=== PATIENT | female | born 1975 | race Caucasian/White ===

== ENCOUNTER 2019-01-14 08:27 | Emergency (ER) | payer SELFPAY ==
[~2019-01-14] VITALS: Ht 160 cm; Wt 56.2 kg
[2019-01-14] MEDS ORDERED: RT-ALBUTEROL/IPRATROPIUM 3 ML (DUONEB) VIAL INH ONE (09:30)
[2019-01-14] MEDS ORDERED: predniSONE 20 MG TAB PO ONE (09:30)
[2019-01-14] MEDS ORDERED: RT-ALBUINH IH (10:04)
[2019-01-14] MEDS ORDERED: FLUT9.9S NS (10:04)
[2019-01-14] MEDS ORDERED: FLUT1DIS26 IH (10:04)
--- NOTE | 2019-01-14 10:04 | ED Respiratory ---
General Chief Complaint: Cough/Cold/Flu Symptoms Stated Complaint: COUGH; SOB Nursing Triage Note: Has been sick for over a week with cough and congestion. Was seen in urgent care a week ago and given a 5 day steroid dose pack that she finished two days ago. Feels like she is worse instead of better. Is having trouble sleeping bc of the cough. Is coughing up clear sputum, states the sputum was green prior to taking the steroid pack. Does have chest pain with coughing and feels short of breath. Has hx of COPD and asthma but has not taken any meds for it for years. History of Present Illness Date Seen by Provider: January 14, 2019 Time Seen by Provider: 09:21 Initial Comments This is a 43 y/o f who presents to the ED for evaluation. Pt with history of Asthma. Reports frequent exacerbations over the past 3-4 months. States that she has been dx multiple times with "bronchitis" and treated with 5 day course of prednisone. Completed a 5 day prednisone course 2 days ago. [place] significantly improved/resolved on the steroids but return of wheezing/dyspnea over the past 2 days. Has nebulized albuterol at home but no inhaler 2/2 cost. Was previously on advair and intranasal flonase but has not been able to take 2/ 2 cost. No fever, no myaglais. intermittent cough that is non-productive. no chest pain. Allergies and Home Medications Allergies Coded Allergies: meperidine (Verified Allergy, Unknown, hives, 01/14/19) Home Medications Albuterol Sulfate 1 Puff Puff, 2 PUFF IH Q4H PRN for SHORTNESS OF BREATH 1 PUFF = 90 MCG Prescribed by: FLORA AYALA on 01/14/19 1004 Fluticasone Propionate 9.[address] [place].susp, 1 SPRAY NS DAILY 1 SPRAY EACH NARE DAILY Prescribed by: FLORA AYALA on 01/14/19 1004 Fluticasone/Salmeterol 1 Each Blst.w.dev, 1 EACH IH DAILY Prescribed by: FLORA AYALA on 01/14/19 1004 Patient Home Medication List Home Medication List Reviewed: Yes Review of Systems Review of Systems Constitutional: No chills, No fever, No weakness Respiratory: cough; No orthopnea; short of breath, wheezing Cardiovascular: No chest pain, No edema, No palpitations Gastrointestinal: No abdominal pain, No diarrhea, No nausea, No vomiting Musculoskeletal: No back pain, No joint pain, No muscle pain Skin: No rash Psychiatric/Neurological: Denies Numbness, Denies Tingling All Other Systems Reviewed Negative Unless Noted: Yes (Negative excepted noted.) Past Zdubcxe-Gaagkm-Qkiwno Hx Patient Social History Alcohol Use: Denies Use Recreational Drug Use: No Smoking Status: Current Everyday Smoker Type Used: Cigarettes 2nd Hand Smoke Exposure: Yes Recent Foreign Travel: No Contact w/Someone Who Travel: No Recent Infectious Disease Expo: No Recent Hopitalizations: No Physical Abuse: No Sexual Abuse: No Mistreated: No Fear: No Seasonal Allergies Seasonal Allergies: No Past Medical History Surgeries: Yes (chest tubes for bilat collapsed lungs) Hysterectomy, Orthopedic Respiratory: Yes Asthma, COPD Cardiac: No Neurological: No Genitourinary: No Gastrointestinal: No Musculoskeletal: No Endocrine: No HEENT: No Cancer: No Psychosocial: No Blood Disorders: No Adverse Reaction/Blood Tranf: No Physical Exam Vital Signs - First Documented 01/14/19 08:37 Temp 97.4 Pulse 97 Resp 22 B/P (MAP) 122/77 (92) Pulse Ox 96 Capillary Refill : Less Than 3 Seconds Height: 5'3.00" Weight: 124lbs. oz. 56.023552ej; BMI Method:Stated General Appearance: WD/WN, no apparent distress, other (non-toxic appearing) HEENT: PERRL/EOMI Respiratory: no respiratory distress, no accessory muscle use, wheezing Cardiovascular: regular rate, rhythm, no edema, no JVD Extremities: normal range of motion, no pedal edema, normal capillary refill Neurologic/Psychiatric: alert, normal mood/affect, oriented x 3 Skin: normal color, warm/dry Progress/Results/Core Measures Suspected Sepsis Recent Fever Within 48 Hours: No Infection Criteria Present: Suspected New Infection New/Unexplained Altered Menta: No Sepsis Screen: Possible Sepsis Risk SIRS Temperature:97.4 Pulse: 97 Respiratory Rate: 22 Blood Pressure 122 /77 Mean: 92 Results/Orders My Orders Orders - FLORA AYALA T DO Albuterol/Ipra Inhalation Soln (Duoneb I (01/14/19 09:30) Svn Small Volume Nebulizer (01/14/19 09:28) Prednisone Tablet (Deltasone Tablet) (01/14/19 09:30) Medications Given in ED Current Medications Medications Dose Ordered Sig/Barbara Route Start Time Stop Time Status Last Admin Dose Admin Albuterol/ Ipratropium 3 ml ONCE ONCE INH 01/14/19 09:30 01/14/19 09:31 DC 01/14/19 09:42 3 ML Prednisone 50 mg ONCE ONCE PO 01/14/19 09:30 01/14/19 09:31 DC 01/14/19 09:44 50 MG Vital Signs/I&O 01/14/19 08:37 Temp 97.4 Pulse 97 Resp 22 B/P (MAP) 122/77 (92) Pulse Ox 96 Capillary Refill : Less Than 3 Seconds Blood Pressure Mean: 92 Progress Note : Time: 10:00 Progress Note Lungs significantly improved after duoneb. Very slight end-expiratory wheezing. Feels improved. Breath sounds equal. At this time do not feel pt requires a CXR as breath sounds are equal. Discussed at length need to optimize outpt medications. Advised addition of Benadryl as pt has allergy symptoms and suspect frequent exacerbations are precipitated by uncontrolled allergies. Provided with Rx for advair/flonase/albuterol inhaler and longer taper of steroids. Advised of local pharmacy that is income based. provided with further prednisone course. ER return precautions given. Pt verbalized understanding. All questions answered. Departure Impression Primary Impression: Asthma exacerbation Disposition: HOME, SELF-CARE Condition: Improved Departure-Patient Inst. Decision time for Depature: 10:01 Referrals: SELFRAMONA MD (PCP/Family) Primary Care Physician Patient Instructions: Asthma in Adults, Avoiding Asthma Triggers Add. Discharge Instructions: Please read the attached handouts. Continue your home allergy medication. Take Benadryl 50mg once a day for further allergy control. Take the steroid course as prescribed. Please get the inhalers filled. All discharge instructions reviewed with patient and/or family. Voiced understanding. Scripts Prednisone (Prednisone) 20 Mg Tab 10 MG PO DAILY, #40 TAB 0 Refills Take 5 tablets x 2 days 4 tablets x 3 days 3 tablets x 3 days 2 tablets x 3 days 1 tablet x 3 days Prov: FLORA AYALA DO 01/14/19 Albuterol Sulfate (PROAIR HFA) 1 Puff Puff 2 PUFF IH Q4H PRN for SHORTNESS OF BREATH for 30 Days, #1 PUFF 3 Refills 1 PUFF = 90 MCG Prov: FLORA AYALA DO 01/14/19 Fluticasone/Salmeterol (Advair 250-50 Diskus) 1 Each Blst.w.dev 1 EACH IH DAILY for 30 Days, DISK Prov: FLORA AYALA DO 01/14/19 Fluticasone Propionate (Flonase Allergy Relief) 9.[address] [place].susp 1 SPRAY NS DAILY, #1 EACH 2 Refills 1 SPRAY EACH NARE DAILY Prov: FLORA AYALA DO 01/14/19 FLORA AYALA DO January 14, 2019 10:04
[2019-01-14 10:16] VITALS: BP 105/74
[2019-01-14] MEDS ORDERED: PRD20T PO (10:38)
== END 2019-01-14 10:16 | disposition home or self-care (01) ==
LOC: EDUNIT# 08:27 → ER FS 08:29
DX: J45.901 Unspecified asthma with (acute) exacerbation (principal); J44.9 Chronic obstructive pulmonary disease, unspecified; F17.210 Nicotine dependence, cigarettes, uncomplicated; Z90.710 Acquired absence of both cervix and uterus; Z88.8 Allergy status to other drugs, medicaments and biological substances; Z91.14 Patient's other noncompliance with medication regimen; Z79.51 Long term (current) use of inhaled steroids
CPT/HCPCS: 99283

== ENCOUNTER 2019-03-31 22:25 | Emergency (ER) | payer SELFPAY ==
[~2019-03-31] VITALS: Ht 157.5 cm; Wt 54.4 kg
[~2019-03-31 22:25] MED LIST: FLUT1DIS26 IH; FLUT9.9S NS; PRD20T PO; RT-ALBUINH IH
[2019-04-01] MEDS ORDERED: KETOROLAC 60 MG/2 ML VIAL IM STA (00:10)
[2019-04-01] MEDS ORDERED: PROCHLORPERAZINE 10 MG/2ML INJ (COMPAZINE) IM STA (00:10)
[2019-04-01] MEDS ORDERED: diphenhydrAMINE 50 MG/ML INJ (BENADRYL) IM STA (00:10)
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
[2019-04-01] MEDS ORDERED: IBUP-1780 PO (00:20)
[2019-04-01 00:28] VITALS: BP 110/83
== END 2019-04-01 00:35 | disposition home or self-care (01) ==
LOC: EDUNIT# 22:25 → ER FS 22:26
DX: T70.0XXA Otitic barotrauma, initial encounter (principal); G43.009 Migraine without aura, not intractable, without status migrainosus; J44.9 Chronic obstructive pulmonary disease, unspecified; Z88.5 Allergy status to narcotic agent; Z79.51 Long term (current) use of inhaled steroids; Z77.22 Contact with and (suspected) exposure to environmental tobacco smoke (acute) (chronic); Z90.710 Acquired absence of both cervix and uterus
CPT/HCPCS: 96372; 99284

== ENCOUNTER 2019-05-08 19:40 | Emergency (ER) | payer SELFPAY, OTHER | END 2019-05-08 22:02 | disposition home or self-care (01) | LOC: ER FS 19:40 ==

== ENCOUNTER 2019-12-14 20:41 | Emergency (ER) | payer SELFPAY ==
[~2019-12-14] VITALS: Ht 157 cm; Wt 55.4 kg
[~2019-12-14 20:41] MED LIST changes: +ALBU2.5V4 INH; +IBUP-1780 PO; +NF-METHYLP PO
[2019-12-14] MEDS ORDERED: RT-ALBUTEROL HFA (PROAIR HFA) 8.5 GM IH SCH (21:00)
[2019-12-14 21:21] LABS: HEMATOCRIT 42 % (35-52); HEMOGLOBIN 13.9 G/DL (11.5-16.0); MEAN CORPUSCULAR HEMOGLOBIN 29 PG (25-34); MEAN CORPUSCULAR HGB CONC 33 G/DL (32-36); MEAN CORPUSCULAR VOLUME 88 FL (80-99); RED CELL DISTRIBUTION WIDTH 12.8 % (10.0-14.5); WHITE BLOOD COUNT 10.1 10^3/uL (4.3-11.0)
[2019-12-14 21:22] LABS: BASOPHILS # (AUTO) 0.1 10^3/uL (0.0-0.1); BASOPHILS % (AUTO) 1 % (0-10); EOSINOPHILS # (AUTO) 0.3 10^3/uL (0.0-0.3); EOSINOPHILS % (AUTO) 3 % (0-10); LYMPHOCYTES # (AUTO) 3.2 X 10^3 (1.0-4.0); LYMPHOCYTES % (AUTO) 32 % (12-44); MEAN PLATELET VOLUME 11.7 FL (7.4-10.4); MONOCYTES # (AUTO) 0.9 X 10^3 (0.0-1.0); MONOCYTES % (AUTO) 9 % (0-12); NEUTROPHILS # (AUTO) 5.5 X 10^3 (1.8-7.8); NEUTROPHILS % (AUTO) 55 % (42-75); PLATELET COUNT 230 10^3/uL (130-400)
--- NOTE | 2019-12-14 21:27 | Diagnostic Imaging Report ---
EXAMINATION: Chest 1 view HISTORY: Two-week cough. COMPARISON: Chest radiograph on 05/08/2019. FINDINGS: The lung volumes are normal. No focal consolidation is seen. No large pleural effusion or pneumothorax is seen. The cardiomediastinal silhouette is normal in size and contour. No acute osseous abnormality is seen. IMPRESSION: 1. No acute pleuroparenchymal process. Dictated by: Dictated on workstation # [id number]
[2019-12-14] MEDS ORDERED: RT-ALBUTEROL/IPRATROPIUM 3 ML (DUONEB) VIAL ONE (21:35)
[2019-12-14 21:37] LABS: ALANINE AMINOTRANSFERASE 9 U/L (0-55); ALBUMIN 4.3 GM/DL (3.2-4.5); ALKALINE PHOSPHATASE 57 U/L (40-136); BILIRUBIN,TOTAL 0.2 MG/DL (0.1-1.0); BUN/CREATININE RATIO 19; CALCIUM 9.1 MG/DL (8.5-10.1); CARBON DIOXIDE 24 MMOL/L (21-32); CHLORIDE 102 MMOL/L (98-107); CREATININE SERUM 0.73 MG/DL (0.60-1.30); GFR ESTIMATED > 60; GLUCOSE 109 MG/DL (70-105); POTASSIUM 3.8 MMOL/L (3.6-5.0); SODIUM 138 MMOL/L (135-145); TOTAL PROTEIN 6.7 GM/DL (6.4-8.2)
[2019-12-14] MEDS ORDERED: methylPREDNISolone 125 MG (Solu-MEDROL) VIAL IM ONE (21:45)
[2019-12-14] MEDS ORDERED: RT-ALBUTEROL/IPRATROPIUM 3 ML (DUONEB) VIAL INH ONE (21:45)
[2019-12-14 22:03] VITALS: BP 105/81
--- NOTE | 2019-12-14 22:11 | ED Respiratory ---
General Chief Complaint: Cough/Cold/Flu Symptoms Stated Complaint: SOA,HEADACHE,BODY ACHES Nursing Triage Note: Pt complaining of a cough that has been going on for 2 weeks. Pt took a steroid the past 4 days but still feels short of breath History of Present Illness Date Seen by Provider: Dec 14, 2019 Time Seen by Provider: 21:05 Initial Comments . known asthma is smoking quite a bit has had problems with allergens in the past and feels like allergies or base of this and had some anterior chest pressure some headache and some cold feeling in her chest. No known history of covert exposure no travel and no risk factors of the respiratory problem is afebrile now and has not had a fever. She has a home nebulizer has an albuterol inhaler as taken both was on a very short course of steroids with little help. Placed her in isolation diffuse covert precautions. Timing/Duration: week Severity: mild Prior Episodes/Possible Cause: frequent episodes, allergen exposure Modifying Factors: Improves With Activity Associated Symptoms: chest pain/soreness, cough; No dizziness, No fever/chills; headache; No lightheadedness, No muscle aches, No nasal congestion; shortness of breath; No sore throat; wheezing Allergies and Home Medications Allergies Coded Allergies: meperidine (Verified Allergy, Unknown, hives, 01/14/19) Home Medications Albuterol Sulfate 1 Puff Puff, 2 PUFF IH Q4H PRN for SHORTNESS OF BREATH 1 PUFF = 90 MCG Prescribed by: FLORA AYALA on 01/14/19 1004 Albuterol Sulfate 2.5 Mg/3 Ml [place].neb, 2.5 MG INH Q6H Prescribed by: ELIO CASTILLO on 05/08/19 214 Fluticasone Propionate 9.9 Ml [place].susp, 1 SPRAY NS DAILY 1 SPRAY EACH NARE DAILY Prescribed by: FLORA AYALA on 01/14/19 1004 Fluticasone/Salmeterol 1 Each Blst.w.dev, 1 EACH IH DAILY Prescribed by: FLORA AYALA on 01/14/19 1004 Ibuprofen 800 Mg Tablet, 800 MG PO Q8H PRN for PAIN Prescribed by: LIZZIE RIVERA on 04/01/19 0020 Methylprednisolone 4 Mg Tab, 4 MG PO UD as directed per dose pack Prescribed by: ELIO CASTILLO on 05/08/192141 Prednisone 20 Mg Tab, 10 MG PO DAILY Take 5 tablets x 2 days 4 tablets x 3 days 3 tablets x 3 days 2 tablets x 3 days 1 tablet x 3 days Prescribed by: FLORA AYALA on 01/14/19 1038 Patient Home Medication List Home Medication List Reviewed: Yes Review of Systems Review of Systems Constitutional: No chills, No fever, No weakness EENTM: No hoarseness, No nose congestion, No throat pain, No throat swelling Respiratory: cough; No dyspnea on exertion; short of breath, wheezing Cardiovascular: chest pain; No edema, No palpitations Gastrointestinal: No constipation, No diarrhea, No nausea, No vomiting Genitourinary: No dysuria, No frequency Musculoskeletal: No back pain, No muscle pain, No muscle stiffness Skin: No dryness, No rash Psychiatric/Neurological: Headache; Denies Numbness, Denies Tingling Past Puawhhq-Uiywzd-Vuwxuz Hx Past Med/Social Hx: Reviewed Nursing Past Med/Soc Hx Patient Social History Alcohol Use: Denies Use Recreational Drug Use: No Smoking Status: Current Everyday Smoker Type Used: Cigarettes 2nd Hand Smoke Exposure: No Recent Foreign Travel: No Contact w/Someone Who Travel: No Recent Infectious Disease Expo: No Recent Hopitalizations: No Physical Abuse: No Sexual Abuse: No Mistreated: No Seasonal Allergies Seasonal Allergies: No Past Medical History Surgeries: Yes (chest tubes for bilat collapsed lungs) Hysterectomy, Orthopedic Respiratory: Yes Asthma, COPD Cardiac: No Neurological: No Genitourinary: No Gastrointestinal: No Musculoskeletal: No Endocrine: No HEENT: No Cancer: No Psychosocial: No Blood Disorders: No Adverse Reaction/Blood Tranf: No Physical Exam Vital Signs - First Documented 12/14/19 20:50 Temp 36.1 Pulse 83 Resp 18 B/P (MAP) 111/49 (69) Pulse Ox 97 O2 Delivery Room Air Capillary Refill : Less Than 3 Seconds Height: 5'3.00" Weight: 117lbs. oz. 53.435894aq; 22.00 BMI Method:Stated General Appearance: WD/WN, no apparent distress Eyes: Bilateral Eye Normal Inspection, Bilateral Eye PERRL, Bilateral Eye EOMI HEENT: PERRL/EOMI, TMs normal, pharynx normal Neck: non-tender, full range of motion, normal inspection Respiratory: lungs clear; No rales, No rhonchi; wheezing (mild) Cardiovascular: regular rate, rhythm, no murmur Extremities: normal range of motion Neurologic/Psychiatric: no motor/sensory deficits, oriented x 3 Skin: normal color, warm/dry Progress/Results/Core Measures Suspected Sepsis Recent Fever Within 48 Hours: No Infection Criteria Present: None New/Unexplained Altered Menta: No Sepsis Screen: No Definite Risk SIRS Temperature: Pulse: 70 Respiratory Rate: 18 Laboratory Tests 12/14/19 21:10: White Blood Count 10.1 Blood Pressure 105 /81 Mean: 69 Laboratory Tests 12/14/19 21:10: Creatinine 0.73, Platelet Count 230, Total Bilirubin 0.2 Results/Orders Lab Results Laboratory Tests Test 12/14/19 21:10 Range/Units White Blood Count 10.1 4.3-11.0 10^3/uL Red Blood Count 4.79 4.35-5.85 10^6/uL Hemoglobin 13.9 11.5-16.0 G/DL Hematocrit 42 35-52 % Mean Corpuscular Volume 88 80-99 FL Mean Corpuscular Hemoglobin 29 25-34 PG Mean Corpuscular Hemoglobin Concent 33 32-36 G/DL Red Cell Distribution Width 12.8 10.0-14.5 % Platelet Count 230 130-400 10^3/uL Mean Platelet Volume 11.7 H 7.4-10.4 FL Neutrophils (%) (Auto) 55 42-75 % Lymphocytes (%) (Auto) 32 12-44 % Monocytes (%) (Auto) 9 0-12 % Eosinophils (%) (Auto) 3 0-10 % Basophils (%) (Auto) 1 0-10 % Neutrophils # (Auto) 5.5 1.8-7.8 X 10^3 Lymphocytes # (Auto) 3.2 1.0-4.0 X 10^3 Monocytes # (Auto) 0.9 0.0-1.0 X 10^3 Eosinophils # (Auto) 0.3 0.0-0.3 10^3/uL Basophils # (Auto) 0.1 0.0-0.1 10^3/uL Sodium Level 138 135-145 MMOL/L Potassium Level 3.8 3.6-5.0 MMOL/L Chloride Level 102 98-107 MMOL/L Carbon Dioxide Level 24 21-32 MMOL/L Anion Gap 12 5-14 MMOL/L Blood Urea Nitrogen 14 7-18 MG/DL Creatinine 0.73 0.60-1.30 MG/DL Estimat Glomerular Filtration Rate > 60 BUN/Creatinine Ratio 19 Glucose Level 109 H 70-105 MG/DL Calcium Level 9.1 8.5-10.1 MG/DL Corrected Calcium 8.9 8.5-10.1 MG/DL Total Bilirubin 0.2 0.1-1.0 MG/DL Aspartate Amino Transf (AST/SGOT) 11 5-34 U/L Alanine Aminotransferase (ALT/SGPT) 9 0-55 U/L Alkaline Phosphatase 57 40-136 U/L Total Protein 6.7 6.4-8.2 GM/DL Albumin 4.3 3.2-4.5 GM/DL Micro Results Microbiology 12/14/19 Influenza Types A,B Antigen (MARY) - Final, Complete My Orders Orders - RONAK JORDAN JR, MD Cbc With Automated Diff (12/14/19 20:51) Comprehensive Metabolic Panel (12/14/19 20:51) Chest 1 View Ap/Pa Only (12/14/19 20:51) Albuterol Inhaler (Proair Hfa) (12/14/19 21:00) Influenza A And B Antigens (12/14/19 21:32) Methylprednisolone Sod Succ (Solu-Medrol (12/14/19 21:45) Albuterol/Ipra Inhalation Soln (Duoneb I (12/14/19 21:45) Svn Small Volume Nebulizer (12/14/19 21:40) Albuterol/Ipra Inhalation Soln (Duoneb I (12/14/19 21:35) Vital Signs/I&O 12/14/19 20:50 Temp 36.1 Pulse 83 Resp 18 B/P (MAP) 111/49 (69) Pulse Ox 97 O2 Delivery Room Air Capillary Refill : Less Than 3 Seconds Blood Pressure Mean: 69 Progress Note : Time: 22:10 Progress Note CBC normal chest x-ray normal flu swab negative at this time due to like there is majority chance this is her asthma did go ahead and give her an aerosolized treatment as MDIs not available later also gave her an injection of Solu-Medrol. In light of the fact that she had. Recently been on steroids as well and feel this is her asthma. Did discuss the possibility of Covan in the need to follow- up on the testing 2-stage herself until the testing is back to nebulize and room away from each other to feel that the whole area would be more contagious because of the nebulization and warned her about that possibility. Will follow up with her primary care physician for results and further evaluation. Departure Impression Primary Impression: Asthma exacerbation Qualified Codes: J45.21 - Mild intermittent asthma with (acute) exacerbation Disposition: HOME, SELF-CARE Condition: Stable Departure-Patient Inst. Referrals: RAMONA BALLARD MD (PCP/Family) Primary Care Physician Patient Instructions: Asthma, Adult (DC) Add. Discharge Instructions: Follow-up with primary care physician for results of testing. Further follow-up. All discharge instructions reviewed with patient and/or family. Voiced understanding. Work/School Note: Work Release Form Date Seen in the Emergency Department: Dec 14, 2019 Restrictions: Need Release from Doctor RONAK JORDAN JR, MD Dec 14, 2019 22:11
== END 2019-12-14 22:27 | disposition home or self-care (01) ==
LOC: EDUNIT# 20:41 → ER FS 20:43
DX: J45.21 Mild intermittent asthma with (acute) exacerbation (principal); F17.210 Nicotine dependence, cigarettes, uncomplicated
CPT/HCPCS: 36415; 71045; 80053; 85025; 87430; 87635; 87804

== ENCOUNTER 2021-05-13 19:59 | Emergency (ER) | payer SELFPAY ==
--- NOTE | 2021-05-13 20:06 | ED Dyspnea ---
General Stated Complaint: SOB/COVID+ History of Present Illness Date Seen by Provider: May 13, 2021 Time Seen by Provider: 20:06 Initial Comments 45-year-old female presents with shortness of breath. Patient reports she has a history of asthma tested positive for Covid. Patient is fully vaccinated. Patient reports she started noticing a few symptoms yesterday and got worse today. 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 Patient reports this evening her shortness of breath got worse. She used her inhaler in route and her symptoms improved significantly. Patient denies any sore throat nausea vomiting fever. She does have some mild chest tightness and a cough. Allergies and Home Medications Allergies Coded Allergies: meperidine (Verified Allergy, Unknown, hives, 01/14/19) Home Medications Albuterol Sulfate 1 Puff Puff, 2 PUFF IH Q4H PRN for SHORTNESS OF BREATH 1 PUFF = 90 MCG Prescribed by: FLORA AYALA on 01/14/19 1004 Albuterol Sulfate 2.5 Mg/3 Ml Vial.neb, 2.5 MG INH Q6H Prescribed by: ELIO CASTILLO on 05/08/192141 Fluticasone Propionate 9.9 Ml [place].susp, 1 SPRAY NS DAILY 1 SPRAY EACH NARE DAILY Prescribed by: FLORA AYALA on 01/14/19 1004 Fluticasone/Salmeterol 1 Each Blst.w.dev, 1 EACH IH DAILY Prescribed by: FLORA AYALA on 01/14/19 1004 Ibuprofen 800 Mg Tablet, 800 MG PO Q8H PRN for PAIN Prescribed by: LIZZIE RIVERA on 04/01/19 0020 Methylprednisolone 4 Mg Tab, 4 MG PO UD as directed per dose pack Prescribed by: ELIO CASTILLO on 05/08/192141 Prednisone 20 Mg Tab, 10 MG PO DAILY Take 5 tablets x 2 days 4 tablets x 3 days 3 tablets x 3 days 2 tablets x 3 days 1 tablet x 3 days Prescribed by: FLORA AYALA on 01/14/19 1038 Patient Home Medication List Home Medication List Reviewed: Yes Review of Systems Review of Systems Constitutional: No chills, No fever EENTM: no symptoms reported Respiratory: cough, short of breath Cardiovascular: see HPI Gastrointestinal: no symptoms reported Musculoskeletal: no symptoms reported Skin: no symptoms reported Psychiatric/Neurological: No Symptoms Reported Endocrine: No Symptoms Reported Hematologic/Lymphatic: No Symptoms Reported Past Zrkmbwe-Kgldra-Ohcgjk Hx Seasonal Allergies Seasonal Allergies: No Past Medical History Surgeries: Yes (chest tubes for bilat collapsed lungs) Hysterectomy, Orthopedic Respiratory: Yes Asthma, COPD Cardiac: No Neurological: No Genitourinary: No Gastrointestinal: No Musculoskeletal: No Endocrine: No HEENT: No Cancer: No Psychosocial: No Blood Disorders: No Adverse Reaction/Blood Tranf: No Physical Exam Vital Signs Vital Signs - First Documented 05/13/21 20:04 Temp 37.0 Pulse 93 Resp 18 B/P (MAP) 118/75 (89) Pulse Ox 100 O2 Delivery Room Air Capillary Refill : Height, Weight, BMI Height: 5'3.00" Weight: 117lbs. oz. 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 Norm as Tested Skin: Normal Color, Warm/Dry Progress/Results/Core Measures Results/Orders Lab Results Laboratory Tests Test 05/13/21 20:08 Range/Units White Blood Count 5.6 4.3-11.0 10^3/uL Red Blood Count 4.44 3.80-5.11 10^6/uL Hemoglobin 12.9 11.5-16.0 g/dL Hematocrit 39 35-52 % Mean Corpuscular Volume 87 80-99 fL Mean Corpuscular Hemoglobin 29 25-34 pg Mean Corpuscular Hemoglobin Concent 33 32-36 g/dL Red Cell Distribution Width 12.8 10.0-14.5 % Platelet Count 181 130-400 10^3/uL Mean Platelet Volume 10.8 9.0-12.2 fL Immature Granulocyte % (Auto) 1 % Neutrophils (%) (Auto) 63 42-75 % Lymphocytes (%) (Auto) 20 12-44 % Monocytes (%) (Auto) 14 H 0-12 % Eosinophils (%) (Auto) 2 0-10 % Basophils (%) (Auto) 1 0-10 % Neutrophils # (Auto) 3.5 1.8-7.8 X 10^3 Lymphocytes # (Auto) 1.1 1.0-4.0 X 10^3 Monocytes # (Auto) 0.8 0.0-1.0 X 10^3 Eosinophils # (Auto) 0.1 0.0-0.3 10^3/uL Basophils # (Auto) 0.0 0.0-0.1 10^3/uL Immature Granulocyte # (Auto) 0.0 0.0-0.1 10^3/uL Sodium Level 139 135-145 MMOL/L Potassium Level 3.4 L 3.6-5.0 MMOL/L Chloride Level 106 98-107 MMOL/L Carbon Dioxide Level 23 21-32 MMOL/L Anion Gap 10 5-14 MMOL/L Blood Urea Nitrogen 10 7-18 MG/DL Creatinine 0.71 0.60-1.30 MG/DL Estimat Glomerular Filtration Rate 88 BUN/Creatinine Ratio 14 Glucose Level 100 70-105 MG/DL Calcium Level 8.2 L 8.5-10.1 MG/DL Corrected Calcium 8.3 L 8.5-10.1 MG/DL Total Bilirubin 0.2 0.1-1.0 MG/DL Aspartate Amino Transf (AST/SGOT) 13 5-34 U/L Alanine Aminotransferase (ALT/SGPT) 8 0-55 U/L Alkaline Phosphatase 55 40-136 U/L Troponin I < 0.30 <0.30 NG/ML Total Protein 6.1 L 6.4-8.2 GM/DL Albumin 3.9 3.2-4.5 GM/DL My Orders Orders - TOAN KINCAID DO Cbc With Automated Diff (05/13/21 20:07) Comprehensive Metabolic Panel (05/13/21 20:07) Troponin I Fs (05/13/21 20:07) Dexamethasone Injection (Decadron Inje (05/13/21 20:15) Chest 1 View Ap/Pa Only (05/13/21 20:07) Ed Iv/Invasive Line Start (05/13/21 20:22) Medications Given in ED Current Medications Medications Dose Ordered Sig/Barbara Route Start Time Stop Time Status Last Admin Dose Admin Dexamethasone Sodium Phosphate 10 mg ONCE ONCE IV 05/13/21 20:15 05/13/21 20:16 DC 8/28/21 20:28 10 MG Vital Signs/I&O 05/13/21 20:04 Temp 37.0 Pulse 93 Resp 18 B/P (MAP) 118/75 (89) Pulse Ox 100 O2 Delivery Room Air Progress Progress Note : Progress Note Patient with negative chest x-ray. Patient's oxygen is saturation is 100%. I did discuss with her about potential Regeneron infusion and I will place an out patient order. Patient stable and discharged Diagnostic Imaging Diagonstic Imaging: Xray Plain Films/CT/US/NM/MRI: chest Comments Date of Exam:05/13/21 CHEST 1 VIEW AP/PA ONLY INDICATION: SOB, Covid positive. TECHNIQUE: Single view chest 8:12 PM. CORRELATION STUDY: 12/14/2019. FINDINGS: Patient is significantly rotated on this study. Given this, mediastinal structures appear generally stable and unremarkable. Asymmetric bullous changes at the right lung apex. No acute consolidating infiltrate. IMPRESSION: Negative for acute abnormality of the chest. Departure Impression Primary Impression: Asthma exacerbation Qualified Codes: J45.21 - Mild intermittent asthma with (acute) exacerbation Additional Impression: COVID-19 Disposition: 01 HOME, SELF-CARE Condition: Stable Departure-Patient Inst. Referrals: SELF,RAMONA BRAR (PCP/Family) Primary Care Physician Patient Instructions: REGEN-COV (casirivimab and imdevimab) FDA Fact Sheet, COVID-19 ED, Asthma in Adults Add. Discharge Instructions: Use your inhaler every 4 hours while awake for the next 24 hours then as needed Scripts Dexamethasone (Dexamethasone) 6 Mg Tablet 6 MG PO ONCE, #1 TAB take on am 05/15/21 Prov: TOAN KINCAID DO 05/13/21 TOAN KINCAID DO May 13, 2021 20:06
[2021-05-13 20:16] LABS: BASOPHILS % (AUTO) 1 % (0-10); EOSINOPHILS # (AUTO) 0.1 10^3/uL (0.0-0.3); EOSINOPHILS % (AUTO) 2 % (0-10); HEMATOCRIT 39 % (35-52); HEMOGLOBIN 12.9 g/dL (11.5-16.0); LYMPHOCYTES # (AUTO) 1.1 X 10^3 (1.0-4.0); LYMPHOCYTES % (AUTO) 20 % (12-44); MEAN CORPUSCULAR HEMOGLOBIN 29 pg (25-34); MEAN CORPUSCULAR HGB CONC 33 g/dL (32-36); MEAN CORPUSCULAR VOLUME 87 fL (80-99); MEAN PLATELET VOLUME 10.8 fL (9.0-12.2); MONOCYTES # (AUTO) 0.8 X 10^3 (0.0-1.0); MONOCYTES % (AUTO) 14 % (0-12); NEUTROPHILS # (AUTO) 3.5 X 10^3 (1.8-7.8); NEUTROPHILS % (AUTO) 63 % (42-75); PLATELET COUNT 181 10^3/uL (130-400); WHITE BLOOD COUNT 5.6 10^3/uL (4.3-11.0)
[2021-05-13 20:35] LABS: ALANINE AMINOTRANSFERASE 8 U/L (0-55); ALKALINE PHOSPHATASE 55 U/L (40-136); BILIRUBIN,TOTAL 0.2 MG/DL (0.1-1.0); BUN/CREATININE RATIO 14; CALCIUM 8.2 MG/DL (8.5-10.1); CARBON DIOXIDE 23 MMOL/L (21-32); CHLORIDE 106 MMOL/L (98-107); CREATININE SERUM 0.71 MG/DL (0.60-1.30); GFR ESTIMATED 88; GLUCOSE 100 MG/DL (70-105); POTASSIUM 3.4 MMOL/L (3.6-5.0); SODIUM 139 MMOL/L (135-145)
[2021-05-13 20:36] LABS: ALBUMIN 3.9 GM/DL (3.2-4.5); TOTAL PROTEIN 6.1 GM/DL (6.4-8.2)
--- NOTE | 2021-05-13 20:42 | Diagnostic Imaging Report ---
INDICATION: SOB, Covid positive. TECHNIQUE: Single view chest 8:12 PM. CORRELATION STUDY: 12/14/2019. FINDINGS: Patient is significantly rotated on this study. Given this, mediastinal structures appear generally stable and unremarkable. Asymmetric bullous changes at the right lung apex. No acute consolidating infiltrate. IMPRESSION: Negative for acute abnormality of the chest. Dictated by: Dictated on workstation # [id number]
[2021-05-13] MEDS ORDERED: DEXA6TAB PO (20:53)
[2021-05-13 21:07] VITALS: BP 101/78
== END 2021-05-13 21:09 | disposition home or self-care (01) ==
LOC: EDUNIT# 19:59 → ER FS 20:02
DX: U07.1 COVID-19 (principal); J44.9 Chronic obstructive pulmonary disease, unspecified; Z79.52 Long term (current) use of systemic steroids
CPT/HCPCS: 36415; 71045; 80053; 84484; 85025

== ENCOUNTER 2022-04-04 08:34 | Emergency (ER) | payer SELFPAY ==
[~2022-04-04] VITALS: Ht 160 cm; Wt 49.9 kg
[~2022-04-04 08:34] MED LIST changes: +DEXA6TAB PO
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
[2022-04-04] MEDS ORDERED: KETOROLAC 30 MG/ML VIAL IM STA (09:38)
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
--- NOTE | 2022-04-04 09:39 | Diagnostic Imaging Report ---
INDICATION: Left rib pain. FINDINGS: 2 views. No rib fractures are demonstrated. IMPRESSION: Negative left ribs. Dictated by: Dictated on workstation # [id number]
[2022-04-04] MEDS ORDERED: ORPHENADRINE 60 MG/2 ML (NORFLEX) AMP (ED ONLY) ONE (09:40)
[2022-04-04 09:52] VITALS: BP 109/72
== END 2022-04-04 09:55 | disposition home or self-care (01) ==
LOC: EDUNIT# 08:34 → ER FS 08:35
DX: S20.20XA Contusion of thorax, unspecified, initial encounter (principal); W22.8XXA Striking against or struck by other objects, initial encounter; Y93.72 Activity, wrestling
CPT/HCPCS: 71046; 71100

== ENCOUNTER 2022-04-07 13:58 | Emergency (ER) | payer OTHER ==
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
[2022-04-07] MEDS ORDERED: KETOROLAC 60 MG/2 ML VIAL IM ONE (14:30)
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
[2022-04-07] MEDS ORDERED: NAPR-1071 PO (15:16)
[2022-04-07] MEDS ORDERED: CYCL5TAB PO (15:16)
[2022-04-07 15:24] VITALS: BP 113/75
== END 2022-04-07 15:24 | disposition home or self-care (01) ==
LOC: EDUNIT# 13:58 → ER FS 14:00
DX: S63.502A Unspecified sprain of left wrist, initial encounter (principal); S70.12XA Contusion of left thigh, initial encounter; S20.212A Contusion of left front wall of thorax, initial encounter; F17.210 Nicotine dependence, cigarettes, uncomplicated; Z95.9 Presence of cardiac and vascular implant and graft, unspecified; V43.52XA Car driver injured in collision with other type car in traffic accident, initial encounter; Y92.410 Unspecified street and highway as the place of occurrence of the external cause
CPT/HCPCS: 71101; 73110; 73502

== ENCOUNTER 2022-11-15 16:04 | Emergency (ER) | payer SELFPAY ==
[~2022-11-15] VITALS: Ht 160 cm; Wt 47.7 kg
[~2022-11-15 16:04] MED LIST changes: +ALBU8.5H6 IH; +CYCL5TAB PO; +NAPR-1071 PO; -RT-ALBUINH IH
--- NOTE | 2022-11-15 16:10 | ED Chest Pain ---
General Stated Complaint: HEADACHE History of Present Illness Date Seen by Provider: Nov 15, 2022 Time Seen by Provider: 16:10 Initial Comments 47-year-old female presents with migraine x3 days. She reports she had a congestion, cough. She has some nausea but no vomiting. No reports of fever. She reports that 3 days when it started she had a "little bit of chest pain" but has not had any since then. She reports she just has not felt good for the last 3 days. She does have a history of asthma but denies any wheezing or shortness of breath. Allergies and Home Medications Allergies Coded Allergies: meperidine (Verified Allergy, Unknown, hives, 01/14/19) Patient Home Medication List Home Medication List Reviewed: Yes Albuterol Sulfate (Ventolin Hfa) 1 Puff Puff, 2 PUFF IH Q4H PRN for SHORTNESS OF BREATH Prescribed by: FLORA AYALA on 01/14/19 1004 Albuterol Sulfate (Albuterol Sulfate) 2.5 Mg/3 Ml Vial.neb, 2.5 MG INH Q6H Prescribed by: ELIO CASTILLO on 05/08/192141 Cyclobenzaprine HCl (Cyclobenzaprine HCl) 5 Mg Tablet, 5 MG PO TID PRN for muscle pain Prescribed by: Jing dave on 04/07/22 151 Dexamethasone (Dexamethasone) 6 Mg Tablet, 6 MG PO ONCE Prescribed by: TOAN KINCAID on 05/13/212052 Fluticasone Propionate (Flonase Allergy Relief) 9.9 Ml Delong.susp, 1 SPRAY NS DAILY Prescribed by: FLORA YAALA on 01/14/19 1004 Fluticasone/Salmeterol (Advair 250-50 Diskus) 1 Each Blst.w.dev, 1 EACH IH DAILY Prescribed by: FLORA AYALA on 01/14/19 1004 Ibuprofen (Ibuprofen) 800 Mg Tablet, 800 MG PO Q8H PRN for PAIN Prescribed by: LIZZIE RIVERA on 04/01/19 0020 Methylprednisolone (Medrol Dose pack) 4 Mg Tab, 4 MG PO UD Prescribed by: ELIO CASTILLO on 05/08/192141 Naproxen (Naprosyn) 500 Mg Tablet, 500 MG PO BID PRN for pain Prescribed by: Jing dave on 04/07/22 1516 Prednisone (Prednisone) 20 Mg Tab, 10 MG PO DAILY Prescribed by: FLORA AYALA on 01/14/19 1038 Review of Systems Review of Systems Constitutional: No chills, No fever; malaise EENTM: Nose Congestion Respiratory: Cough; Denies Shortness of Air Cardiovascular: See HPI Gastrointestinal: Denies Abdominal Pain, Denies Diarrhea; Nausea; Denies Vomiting Genitourinary: No Symptoms Reported Musculoskeletal: no symptoms reported Skin: no symptoms reported Psychiatric/Neurological: Headache Past Ziksuhf-Nvhksv-Taanag Hx Seasonal Allergies Seasonal Allergies: No Past Medical History Surgery/Hospitalization HX: asthma/COPD, ORIF of right ankle; Pneumothorax Surgeries: Yes (chest tubes for bilat collapsed lungs) Hysterectomy, Orthopedic Respiratory: Yes Asthma, COPD Cardiac: No Neurological: No Genitourinary: No Gastrointestinal: No Musculoskeletal: No Endocrine: No HEENT: No Cancer: No Psychosocial: No Blood Disorders: No Adverse Reaction/Blood Tranf: No Physical Exam Vital Signs Vital Signs - First Documented 11/15/22 16:09 Temp 36.7 Pulse 111 Resp 16 B/P (MAP) 101/80 (87) O2 Delivery Room Air Capillary Refill : Height, Weight, BMI Height: 5'3.00" Weight: 117lbs. oz. 53.439167iv; 19.00 BMI Method:Stated General Appearance: No Apparent Distress, WD/WN HEENT: Moist Mucous Membranes Neck: Full Range of Motion, Non Tender Respiratory: Lungs Clear, Normal Breath Sounds Cardiovascular: No Edema, Tachycardia Gastrointestinal: No Distended Extremity: Normal Capillary Refill, Normal Range of Motion Neurologic/Psychiatric: Alert, Oriented x3, No Motor/Sensory Deficits, Normal Mood/Affect, utility bill complaints investigator II-XII Norm as Tested Progress/Results/Core Measures Results/Orders Lab Results Laboratory Tests Test 11/15/22 16:09 Range/Units White Blood Count 9.7 4.3-11.0 10^3/uL Red Blood Count 5.07 3.80-5.11 10^6/uL Hemoglobin 14.6 11.5-16.0 g/dL Hematocrit 44 35-52 % Mean Corpuscular Volume 88 80-99 fL Mean Corpuscular Hemoglobin 29 25-34 pg Mean Corpuscular Hemoglobin Concent 33 32-36 g/dL Red Cell Distribution Width 12.7 10.0-14.5 % Platelet Count 255 130-400 10^3/uL Mean Platelet Volume 10.9 9.0-12.2 fL Immature Granulocyte % (Auto) 0 % Neutrophils (%) (Auto) 63 42-75 % Lymphocytes (%) (Auto) 22 12-44 % Monocytes (%) (Auto) 10 0-12 % Eosinophils (%) (Auto) 4 0-10 % Basophils (%) (Auto) 1 0-10 % Neutrophils # (Auto) 6.1 1.8-7.8 10^3/uL Lymphocytes # (Auto) 2.1 1.0-4.0 10^3/uL Monocytes # (Auto) 1.0 0.0-1.0 10^3/uL Eosinophils # (Auto) 0.4 H 0.0-0.3 10^3/uL Basophils # (Auto) 0.1 0.0-0.1 10^3/uL Immature Granulocyte # (Auto) 0.0 0.0-0.1 10^3/uL Sodium Level 139 135-145 MMOL/L Potassium Level 4.1 3.6-5.0 MMOL/L Chloride Level 106 98-107 MMOL/L Carbon Dioxide Level 24 21-32 MMOL/L Anion Gap 9 5-14 MMOL/L Blood Urea Nitrogen 12 7-18 MG/DL Creatinine 0.69 0.60-1.30 MG/DL Estimat Glomerular Filtration Rate 106 BUN/Creatinine Ratio 17 Glucose Level 111 H 70-105 MG/DL Calcium Level 9.2 8.5-10.1 MG/DL Corrected Calcium 9.0 8.5-10.1 MG/DL Total Bilirubin 0.3 0.1-1.0 MG/DL Aspartate Amino Transf (AST/SGOT) 23 5-34 U/L Alanine Aminotransferase (ALT/SGPT) 18 0-55 U/L Alkaline Phosphatase 73 40-136 U/L Troponin I < 0.30 <0.30 NG/ML Total Protein 6.9 6.4-8.2 GM/DL Albumin 4.3 3.2-4.5 GM/DL My Orders Orders - KINCAID,TOAN L DO Cbc With Automated Diff (11/15/22 16:14) Comprehensive Metabolic Panel (11/15/22 16:14) Troponin I Fs (11/15/22 16:14) Ekg Tracing (11/15/22 16:14) Monitor-Rhythm Ecg Trace Only (11/15/22 16:14) Chest 1 View Ap/Pa Only (11/15/22 16:14) Metoclopramide Injection (Reglan Injecti (11/15/22 16:14) Ns Iv 1000 Ml (Sodium Chloride 0.9%) (11/15/22 16:14) Ketorolac Injection (Toradol Injection) (11/15/22 16:14) Diphenhydramine Injection (Benadryl Inje (11/15/22 16:14) Vital Signs/I&O 11/15/22 11/15/22 16:09 16:09 Temp 36.7 Pulse 111 Resp 16 B/P (MAP) 101/80 (87) O2 Delivery Room Air Room Air Progress Progress Note : Progress Note Diagnostic test were ordered reviewed and interpreted by me. Patient radiologic studies were reviewed by me initially then reviewed radiologist report for final interpretation. Patient's EKG was evaluated by me. Patient symptoms are consistent with migraine with a viral upper respiratory infection. She has no acute findings on labs. She had negative troponin negative chest x-ray and n egative EKG for any acute findings. Patient is feeling better following treatment with Toradol, Reglan and Benadryl for her migraine. Patient stable and discharged Initial ECG Impression Date: Nov 15, 2022 Initial ECG Impression Time: 16:31 Initial ECG Rate: 92 Initial ECG Rhythm: Normal Sinus Comment no acute st elevation or changes Diagnostic Imaging Diagonstic Imaging: Xray Plain Films/CT/US/NM/MRI: chest Comments Date of Exam:11/15/22 CHEST 1 VIEW AP/PA ONLY EXAMINATION: Chest, one view. HISTORY: Cough, congestion. COMPARISON: 05/13/2021. FINDINGS: The lungs are clear without edema or pneumonia. No pleural effusion or pneumothorax. Heart size is normal. IMPRESSION: 1. Clear lungs. Reviewed: Reviewed by Me, Reviewed/Discussed Departure Impression Primary Impression: Migraine Qualified Codes: G43.009 - Migraine without aura, not intractable, without status migrainosus Additional Impression: Viral URI Disposition: HOME, SELF-CARE Condition: Stable Departure-Patient Inst. Referrals: SELF,RAMONA BRAR (PCP) Primary Care Physician Patient Instructions: Cough, Runny Nose, and the Common Cold (DC), Migraines (DC) Add. Discharge Instructions: Please follow-up with your primary care provider as needed. Drink plenty of fluids and get plenty of rest TOAN KINCAID DO Nov 15, 2022 16:10
[2022-11-15] MEDS ORDERED: NS IV 1000 ML 1,000 ML IV STA (16:14)
[2022-11-15] MEDS ORDERED: KETOROLAC 30 MG/ML VIAL IVP STA (16:14)
[2022-11-15] MEDS ORDERED: diphenhydrAMINE 50 MG/ML INJ (BENADRYL) IV STA (16:14)
[2022-11-15] MEDS ORDERED: METOCLOPRAMIDE INJ 10 MG/2 ML (REGLAN) IVP STA (16:14)
[2022-11-15 16:25] LABS: BASOPHILS # (AUTO) 0.1 10^3/uL (0.0-0.1); BASOPHILS % (AUTO) 1 % (0-10); EOSINOPHILS # (AUTO) 0.4 10^3/uL (0.0-0.3); EOSINOPHILS % (AUTO) 4 % (0-10); HEMATOCRIT 44 % (35-52); HEMOGLOBIN 14.6 g/dL (11.5-16.0); LYMPHOCYTES # (AUTO) 2.1 10^3/uL (1.0-4.0); LYMPHOCYTES % (AUTO) 22 % (12-44); MEAN CORPUSCULAR HEMOGLOBIN 29 pg (25-34); MEAN CORPUSCULAR HGB CONC 33 g/dL (32-36); MEAN CORPUSCULAR VOLUME 88 fL (80-99); MEAN PLATELET VOLUME 10.9 fL (9.0-12.2); MONOCYTES % (AUTO) 10 % (0-12); NEUTROPHILS # (AUTO) 6.1 10^3/uL (1.8-7.8); NEUTROPHILS % (AUTO) 63 % (42-75); PLATELET COUNT 255 10^3/uL (130-400); WHITE BLOOD COUNT 9.7 10^3/uL (4.3-11.0)
--- NOTE | 2022-11-15 16:40 | Diagnostic Imaging Report ---
EXAMINATION: Chest, one view. HISTORY: Cough, congestion. COMPARISON: 05/13/2021. FINDINGS: The lungs are clear without edema or pneumonia. No pleural effusion or pneumothorax. Heart size is normal. IMPRESSION: 1. Clear lungs. Dictated by: Dictated on workstation # [id number]
[2022-11-15 16:43] LABS: BILIRUBIN,TOTAL 0.3 MG/DL (0.1-1.0); BUN/CREATININE RATIO 17; CALCIUM 9.2 MG/DL (8.5-10.1); CARBON DIOXIDE 24 MMOL/L (21-32); CHLORIDE 106 MMOL/L (98-107); CREATININE SERUM 0.69 MG/DL (0.60-1.30); GFR ESTIMATED 106; GLUCOSE 111 MG/DL (70-105); POTASSIUM 4.1 MMOL/L (3.6-5.0); SODIUM 139 MMOL/L (135-145)
[2022-11-15 16:44] LABS: ALANINE AMINOTRANSFERASE 18 U/L (0-55); ALBUMIN 4.3 GM/DL (3.2-4.5); ALKALINE PHOSPHATASE 73 U/L (40-136); TOTAL PROTEIN 6.9 GM/DL (6.4-8.2)
[2022-11-15 17:31] VITALS: BP 127/68
== END 2022-11-15 17:31 | disposition home or self-care (01) ==
LOC: EDUNIT# 16:04 → ER FS 16:05
DX: J06.9 Acute upper respiratory infection, unspecified (principal); G43.909 Migraine, unspecified, not intractable, without status migrainosus
CPT/HCPCS: 36415; 71045; 80053; 84484; 85025; 93005; 93041